=== PATIENT | female | born 1995 | race Two or more races ===

== ENCOUNTER → 2018-03-31 | Emergency (ER) | payer OTHER ==
[~2018-03-31] MED LIST: IBUPROFEN 600 MG TABLET (FP) PO ONE
[2018-03-31 03:03] VITALS: BP 102/68; PULSE 66; TEMP 97.5; BMI 24.0
--- NOTE | 2018-03-31 03:17 | PDOC ---
History of Present Illness - General Chief Complaint: Ear Problem Stated Complaint: EARACHE Time Seen by Provider: 03/31/18 02:59 History Source: Patient Exam Limitations: No Limitations - History of Present Illness Initial Comments: 03/31/18 03:12 Patient is 22F with history of lupus on plaquenil here today complaining of bilateral ear pain that woke her from sleep this morning. Patient states that she woke up feeling like her ears popped, then felt like her vision was "narrowing" when an associated frontal headache. She states that she took claritin, and the headache has improved and symptoms in general have improved. Patient states that she cleaned her ears with q tips after the pain. She endorses using q tips chronically. Denies changes to her hearing. States that she had subjective fever [place]. No chills, nausea, vomiting. LMP yesterday. Endorses sore throat. State Past History - Past Medical History Allergies/Adverse Reactions: Allergies Allergy/AdvReac Type Severity Reaction Status Date / Time No Known Allergies Allergy Verified 03/31/18 02:56 - Suicide/Smoking/Psychosocial Hx Smoking History: Never smoked Have you smoked in the past 12 months: No Information on smoking cessation initiated: No Hx Alcohol Use: No Drug/Substance Use Hx: No Review of Systems - Review of Systems Comments:: 03/31/18 03:16 GENERAL/CONSTITUTIONAL: No fever or chills. No weakness. HEAD, EYES, EARS, NOSE AND THROAT: No change in vision. + ear pain and + sore throat. CARDIOVASCULAR: No chest pain or shortness of breath RESPIRATORY: No cough, wheezing, or hemoptysis. GASTROINTESTINAL: No nausea, vomiting, diarrhea or constipation. GENITOURINARY: No dysuria, frequency, or change in urination. SKIN: No rash NEUROLOGIC: No headache, vertigo, loss of consciousness, or change in strength/ sensation. ALLERGIC/IMMUNOLOGIC: No hives or skin allergy. *Physical Exam - Vital Signs Last Vital Signs Temp Pulse Resp BP Pulse Ox 97.5 F L 66 18 102/68 100 03/31/18 03:01 03/31/18 03:01 03/31/18 03:01 03/31/18 03:01 03/31/18 03:01 - Physical Exam Comments: 03/31/18 03:17 GENERAL: Awake, alert, and fully oriented, in no acute distress HEAD: No signs of trauma, normocephalic, atraumatic EYES: PERRLA, EOMI, sclera anicteric, conjunctiva clear ENT: Auricles normal inspection, hearing grossly normal, nares patent, oropharynx clear without exudates. Moist mucosa. EARS: Excoriation with perforation of R tm, clear canals with minor excoriations , nontender mastoids and tmj joints. No fluid levels NECK: Normal ROM, supple, no lymphadenopathy, JVD, or masses LUNGS: No distress, speaks full sentences, clear to auscultation bilaterally HEART: Regular rate and rhythm, normal S1 and S2, no murmurs, rubs or gallops, peripheral pulses normal and equal bilaterally. NEUROLOGICAL: Cranial nerves II through XII grossly intact. Normal speech, normal gait, no focal sensorimotor deficits SKIN: Warm, Dry, normal turgor, no rashes or lesions noted. Moderate Sedation - Procedure Monitoring Vital Signs: Procedure Monitoring Vital Signs Temperature 97.5 F L 03/31/18 03:01 Pulse Rate 66 03/31/18 03:01 Respiratory Rate 18 03/31/18 03:01 Blood Pressure 102/68 03/31/18 03:01 O2 Sat by Pulse Oximetry (%) 100 03/31/18 03:01 Medical Decision Making - Medical Decision Making 03/31/18 03:18 Patient is 22F here today with ear pain. Vitals normal and stable. No signs of OM, no perforation of TM, instructed to not use q tips. Considered TMJ but no symptoms at this time. Given ENT follow up. 03/31/18 03:31 Patient eloped before attending evaluation. *DC/Admit/Observation/Transfer Diagnosis at time of Disposition: Ear pain - Discharge Dispostion Disposition: ELOPED Condition at time of disposition: Good Decision to Admit order: No - Referrals Referrals: Bogdan Shine MD [Staff Physician] - - Patient Instructions - Post Discharge Activity
--- NOTE | 2018-03-31 03:38 | PDOC ---
Attending Attestation - Resident Resident Name: Ezequiel Kelly - ED Attending Attestation I have performed the following: I have examined & evaluated the patient, The case was reviewed & discussed with the resident, I agree w/resident's findings & plan, Exceptions are as noted - HPI HPI: 03/31/18 03:38 pt left prior to my evaluation
== END | disposition left against medical advice (07) ==
LOC: JER 02:40
DX: H92.03 Otalgia, bilateral (principal)
CPT/HCPCS: 99281-25